=== PATIENT | female | born 1960 | race Two or more races ===

== ENCOUNTER 2019-06-08 20:21 | Emergency (ER) | payer MEDICAID, OTHER ==
[~2019-06-08] VITALS: Ht 149.9 cm; Wt 56.7 kg
[2019-06-08 21:45] LABS: Basophils # (auto) 0.1 10 ^3/uL (0-0.2); Basophils % (auto) 0.6 % (0.0-2.0); Eosinophils # (auto) 0.3 10 ^3/uL (0-0.8); Eosinophils % (auto) 3.2 % (0.0-7.0); Hematocrit 31.1 % (36.0-46.0); Hemoglobin 10.3 g/dL (12.2-16.2); Lymphocytes # (auto) 1.4 10 ^3/uL (0.4-5.4); Lymphocytes % (auto) 15.1 % (10.0-50.0); Mean Corpuscular Hemoglobin 29.5 pg (28.0-32.0); Mean Corpuscular Volume 89.4 fL (80.0-100.0); Monocytes # (auto) 0.5 10 ^3/uL (0-1.3); Monocytes % (auto) 5.2 % (0.0-12.0); Neutrophils # (auto) 7.3 10 ^3/uL (1.6-8.6); Neutrophils % (auto) 75.9 % (37.0-80.0); Platelet Count (auto) 312 10^3/uL (140-450); Red Blood Cells 3.48 10^6/uL (4.0-5.20); Red Cell Distribution Width 12.8 % (11.8-14.3); White Blood Cell 9.6 10^3/uL (4.4-10.8)
[2019-06-08] MEDS ORDERED: ONDANSETRON HCL 4 MG/2 ML VIAL IV ONE (21:45)
[2019-06-08] MEDS ORDERED: HYDROmorphone HCL 2 MG/ML VL IV ONE (21:45)
[2019-06-08 22:00] LABS: Albumin 1.9 g/dL (3.4-5.0); Anion Gap 8 (5-15); Blood Urea Nitrogen 33 mg/dL (7-18); Carbon Dioxide 27 mmol/L (21-32); Chloride 97 mmol/L (98-107); INR 1.03 (0.9-1.15); Partial Thromboplastin Time 32.1 sec (23.64-32.05); Potassium 3.5 mmol/L (3.5-5.1); Sodium 132 mmol/L (136-145)
[2019-06-08 22:02] LABS: Alanine Aminotransferase 26 U/L (13-56); Aspartate Aminotransferase 32 U/L (15-37); Bilirubin, Total 0.3 mg/dL (0.2-1.0); GFR African American 27 mL/min; GFR Non-African American 22 mL/min; Total Protein 7.3 g/dL (6.4-8.2)
[2019-06-08 22:08] LABS: Alkaline Phosphatase 237 U/L (45-117)
[2019-06-08 22:12] LABS: BUN/Creatinine Ratio 13.9
[2019-06-08 22:14] LABS: Glucose 596 mg/dL (74-106)
[2019-06-08] MEDS ORDERED: InsuLIN REG 1unit/0.01ml Soln (100units/ml) IV ONE (22:30)
[2019-06-09] MEDS ORDERED: ENOXAPARIN SOD 100 MG/1 ML SYRINGE SC ONE (01:00)
[2019-06-09] MEDS ORDERED: CLINDAMYCIN 900MG IV 50 ML IV ONE (03:30)
[2019-06-09] MEDS ORDERED: PIPERACILLIN-TAZOB 3.375GM 100 ML IV ONE (03:30)
[2019-06-09 03:57] VITALS: BP 123/61
== END 2019-06-09 04:15 | disposition short-term general hospital (02) ==
LOC: ER 20:21
DX: L03.115 Cellulitis of right lower limb (principal); I73.9 Peripheral vascular disease, unspecified; I77.1 Stricture of artery; E11.65 Type 2 diabetes mellitus with hyperglycemia; N17.9 Acute kidney failure, unspecified
CPT/HCPCS: 36415; 73700; 80053; 82010; 82962; 83605; 84484; 85025; 85610; 85730; 87040; 93926; 96372; 96374; 96375; 99285; J1170; J1650; J1815; J2405